=== PATIENT | male | born 2000 | race American Indian/Alaskan Native ===

== ENCOUNTER 2020-12-30 11:43 | Emergency (ER) | payer BC ==
[2020-12-30] MEDS ORDERED: TETRACAINE 0.5% OPHTH SOLN 4ML OU PRN (12:48)
[2020-12-30] MEDS ORDERED: ONDANSETRON 4 MG ODT TAB PO ONE (12:48)
[2020-12-30] MEDS ORDERED: FLUORESCEIN 1 MG STRIP OP ONE (12:48)
[2020-12-30] MEDS ORDERED: oxyCODONE /ACETAMINOPHEN 5-325MG TAB PO ONE (12:48)
--- NOTE | 2020-12-30 13:04 | Emergency Department Report ---
ED General Adult HPI - General Chief complaint: Eye Problems Stated complaint: VISION LOSS, BLOOD PRESSURE/ SUGAR Time Seen by Provider: 12/30/20 12:11 Source: patient Mode of arrival: Ambulatory Limitations: No Limitations - History of Present Illness Initial comments: 20-year-old -Irish male patient presents with complaints of left eye pain and irritation x2 weeks. He also reports increasingly worsening left eye vision since the onset of his symptoms. He denies any specific eye trauma, however states about 3 weeks ago he had a near syncopal episode while at home and broke his glasses. He denies wearing any contacts or feeling any foreign bodies in the eye after the incident. Patient also denies any head trauma or complete loss of consciousness. Today he reports a mild left-sided headache that starts from his left eye. He denies any past medical history including diabetes or HIV. Patient rates his current pain as a 9/10 in severity and admits to some photophobia. - Related Data Previous Rx's Medication Instructions Recorded Last Taken Type Acetaminophen/Codeine [Tylenol 1 tab PO Q8H PRN #8 tab 12/30/20 Unknown Rx /Codeine # 3 tab] Ibuprofen [Motrin 800 MG tab] 800 mg PO Q8HR PRN #20 tablet 12/30/20 Unknown Rx Ofloxacin 0.3% [Ocuflox 0.3% opth] 2 drops OP Q4H 7 Days #1 bottle 12/30/20 Unknown Rx Prednisone [predniSONE 10 mg 10 mg PO .TAPER #1 tab.ds.pk 12/30/20 Unknown Rx (6-Day Pack, 21 Tabs)] Sulfamethoxazole/Trimethoprim 1 each PO BID 10 Days #20 tablet 12/30/20 Unknown Rx [Bactrim DS TAB] Allergies Allergy/AdvReac Type Severity Reaction Status Date / Time No Known Allergies Allergy Verified 12/30/20 11:48 ED Review of Systems ROS: Stated complaint: VISION LOSS, BLOOD PRESSURE/ SUGAR Other details as noted in HPI Constitutional: denies: chills, diaphoresis, fever, malaise, weakness Eyes: eye pain, vision change. denies: eye discharge Cardiovascular: denies: chest pain Genitourinary: denies: hematuria, discharge, testicular pain Skin: denies: lesions (No genital lesions/ulcerations), change in color Neurological: denies: numbness, paresthesias, abnormal gait, other (Dizziness, memory loss, confusion) ED Past Medical Hx - Medications Home Medications: Home Medications Medication Instructions Recorded Confirmed Last Taken Type Acetaminophen/Codeine [Tylenol 1 tab PO Q8H PRN #8 tab 12/30/20 Unknown Rx /Codeine # 3 tab] Ibuprofen [Motrin 800 MG tab] 800 mg PO Q8HR PRN #20 tablet 12/30/20 Unknown Rx Ofloxacin 0.3% [Ocuflox 0.3% opth] 2 drops OP Q4H 7 Days #1 bottle 12/30/20 Unknown Rx Prednisone [predniSONE 10 mg 10 mg PO .TAPER #1 tab.ds.pk 12/30/20 Unknown Rx (6-Day Pack, 21 Tabs)] Sulfamethoxazole/Trimethoprim 1 each PO BID 10 Days #20 tablet 12/30/20 Unknown Rx [Bactrim DS TAB] ED Physical Exam - General Limitations: No Limitations General appearance: alert, in no apparent distress - Head Head exam: Present: atraumatic, normocephalic - Eye Eye exam: Present: PERRL, EOMI, conjunctival injection (Left). Absent: periorbital swelling, periorbital tenderness - Neck Neck exam: Present: normal inspection - Respiratory Respiratory exam: Present: normal lung sounds bilaterally. Absent: respiratory distress - Cardiovascular Cardiovascular Exam: Present: regular rate - Extremities Exam Extremities exam: Present: full ROM - Neurological Exam Neurological exam: Present: alert, oriented X3, CN II-XII intact, normal gait. Absent: motor sensory deficit - Psychiatric Psychiatric exam: Present: normal affect, normal mood - Skin Skin exam: Present: warm, dry, intact, normal color. Absent: rash ED Course Vital Signs 12/30/20 12/30/20 11:48 18:09 Temperature 98.8 F Pulse Rate 90 89 Respiratory 16 18 Rate Blood Pressure 117/75 110/49 [Left] O2 Sat by Pulse 99 99 Oximetry ED Medical Decision Making - Lab Data Result diagrams: 12/30/20 14:26 12/30/20 14:26 Lab Results 12/30/20 12/30/20 Range/Units 14:26 14:26 WBC 5.3 (4.5-11.0) K/mm3 RBC 4.06 (3.65-5.03) M/mm3 Hgb 10.6 L (11.8-15.2) gm/dl Hct 32.7 L (35.5-45.6) % MCV 81 L (84-94) fl MCH 26 L (28-32) pg MCHC 32 (32-34) % RDW 15.4 H (13.2-15.2) % Plt Count 274 (140-440) K/mm3 Lymph % (Auto) 30.2 (13.4-35.0) % Teller % (Auto) 14.1 H (0.0-7.3) % Eos % (Auto) 2.7 (0.0-4.3) % Baso % (Auto) 0.7 (0.0-1.8) % Lymph # (Auto) 1.6 (1.2-5.4) K/mm3 Teller # (Auto) 0.7 (0.0-0.8) K/mm3 Eos # (Auto) 0.1 (0.0-0.4) K/mm3 Baso # (Auto) 0.0 (0.0-0.1) K/mm3 Seg Neutrophils % 52.3 (40.0-70.0) % Seg Neutrophils # 2.8 (1.8-7.7) K/mm3 ESR 84 (0-20) mm/Hr Sodium 130 L (137-145) mmol/L Potassium 4.4 (3.6-5.0) mmol/L Chloride 97.4 L (98-107) mmol/L Carbon Dioxide 23 (22-30) mmol/L Anion Gap 14 mmol/L BUN 14 (9-20) mg/dL Creatinine 0.8 (0.8-1.3) mg/dL Estimated GFR > 60 ml/min BUN/Creatinine Ratio 18 % Glucose 86 (75-100) mg/dL Calcium 8.6 (8.4-10.2) mg/dL - Medical Decision Making 20-year-old -Irish male patient presents with complaints of left eye pain and irritation x2 weeks. He also reports increasingly worsening left eye vision since the onset of his symptoms. He denies any specific eye trauma, however states about 3 weeks ago he had a near syncopal episode while at home and broke his glasses. He denies wearing any contacts or feeling any foreign bodies in the eye after the incident. Patient also denies any head trauma or complete loss of consciousness. Today he reports a mild left-sided headache that starts from his left eye. He denies any past medical history including diabetes or HIV. Patient rates his current pain as a 9/10 in severity and admits to some photophobia. Fluorescein stain of the eye is normal. Decreased vision of the left eye noted on visual acuity. White count is normal CBC. Neuro exam is normal. Patient has normal EOMs. Vision somewhat improved post pain meds per patient. We will treat for uveitis and bacterial conjunctivitis with antibiotics and steroids. Patient instructed to follow-up worsening in the morning with ophthalmology, patient referred to Dr. Castañeda. Discussed in great detail signs and symptoms that should prompt immediate return to the emergency department with patient, he verbalizes understanding. He is otherwise well-appearing, his pain is controlled, he is stable for discharge home. Critical care attestation.: If time is entered above; I have spent that time in minutes in the direct care of this critically ill patient, excluding procedure time. ED Disposition Clinical Impression: Left eye pain, Conjunctivitis, left eye Disposition: 01 HOME / SELF CARE / HOMELESS Is pt being admited?: No Condition: Stable Instructions: Bacterial Conjunctivitis, Adult, Uveitis, [id number] Prescriptions: Sulfamethoxazole/Trimethoprim [Bactrim DS TAB] 1 each PO BID 10 Days #20 tablet Ibuprofen [Motrin 800 MG tab] 800 mg PO Q8HR PRN #20 tablet PRN Reason: pain Ofloxacin 0.3% [Ocuflox 0.3% opth] 2 drops OP Q4H 7 Days #1 bottle Prednisone [predniSONE 10 mg (6-Day Pack, 21 Tabs)] 10 mg PO .TAPER #1 tab.ds.pk Acetaminophen/Codeine [Tylenol /Codeine # 3 tab] 1 tab PO Q8H PRN #8 tab PRN Reason: Pain , Severe (7-10) Referrals: OSEI CASTAÑEDA MD [Staff Physician] - 24 Hours
[2020-12-30 14:51] LABS: Basophils % (Auto) 0.7 % (0.0-1.8); Eosinophils # (Auto) 0.1 K/mm3 (0.0-0.4); Eosinophils % (Auto) 2.7 % (0.0-4.3); Hematocrit 32.7 % (35.5-45.6); Hemoglobin 10.6 gm/dl (11.8-15.2); Lymphocytes # (Auto) 1.6 K/mm3 (1.2-5.4); Lymphocytes % (Auto) 30.2 % (13.4-35.0); Mean Corpuscular HGB Conc 32 % (32-34); Mean Corpuscular Volume 81 fl (84-94); Monocytes # (Auto) 0.7 K/mm3 (0.0-0.8); Monocytes % (Auto) 14.1 % (0.0-7.3); Platelet Count 274 K/mm3 (140-440); Red Blood Count 4.06 M/mm3 (3.65-5.03); Red Cell Distribution Width 15.4 % (13.2-15.2)
[2020-12-30 15:07] LABS: BUN/Creatinine Ratio 18; Blood Urea Nitrogen 14 mg/dL (9-20); Calcium 8.6 mg/dL (8.4-10.2); Hemolysis Index 0
[2020-12-30 15:16] LABS: Erythrocyte Sedimentation Rate 84 mm/Hr (0-20)
[2020-12-30] MEDS ORDERED: SODIUM CHLORIDE 0.9% 1000 ML 1,000 ML IV ONE (15:41)
[2020-12-30] MEDS ORDERED: dexAMETHasone 20 MG/5 ML VIAL IV ONE (17:06)
[2020-12-30 18:18] VITALS: BP 110/49
== END 2020-12-30 18:18 | disposition home or self-care (01) ==
LOC: ED 11:43
DX: H10.9 Unspecified conjunctivitis (principal)
CPT/HCPCS: 36415; 80048; 85025; 85652; 96361; 96374; 99284; J1100; J7030; 99283; Q0162